=== PATIENT | male | born 1960 | race Caucasian/White ===

== ENCOUNTER 2018-01-28 06:14 | Day surgery (SDC) | payer OTHER ==
[2018-01-28] MEDS ORDERED: LIDOCAINE 4% SOLUTION 50 ML BTL (07:41)
[2018-01-28] MEDS ORDERED: FENTAnyl 50 MCG/ML VIAL (08:24)
[2018-01-28] MEDS ORDERED: MIDAZOLAM 1 MG/ML 2 ML INJ ×2 (08:24)
== END 2018-01-28 11:31 | disposition home or self-care (01) ==
LOC: GIL 06:14
DX: K29.50 Unspecified chronic gastritis without bleeding (principal); K51.90 Ulcerative colitis, unspecified, without complications; K21.0 Gastro-esophageal reflux disease with esophagitis
CPT/HCPCS: 43239; 88305; 88312; 88313